=== PATIENT | male | born 1995 | race Caucasian/White ===

== ENCOUNTER 2023-03-23 02:08 | Day surgery (SDC) | payer MEDICARE, MEDICAID, SELFPAY ==
[2023-03-08 16:08] VITALS: BMI 25.5
--- NOTE | 2023-03-08 16:30 | PC.NURSE ---
Report to the Outpatient Waiting Room, entrance under the green pavilion located off [facility], at time _0600_ on date _[id number]_. Planned Procedure Time: _0730_. Time changes happen often and if your time is changed the preop area will call you the afternoon before. - You and your visitor will be asked to self-screen and do not enter if you have any COVID symptoms. - A mask is optional within the hospital at this time. Patients may have clear liquids (water, carbonated beverages, clear teas, apple juice) until 3 hours prior to surgery with a maximum of 20 ounces. - No food from midnight until time of surgery - Children will be allowed to drink immediately following surgery. If applicable, please bring a bottle or sippy cup to assist with drinking. Juice, water, soda, and popsicles are readily available. Take the following medications with a SIP of water the morning of surgery: _Carbamazepine, Clonazepam, Desmopressin, Hydroxyzine, Lacosamide, Levothyroxine, Quetiapine._ DO NOT STOP ANY OF YOUR OTHER PRESCRIPTION MEDICATIONS PRIOR TO SURGERY ?EXCEPT THE FOLLOWING Medications to discontinue per physician None Please no make-up, nail divehi, hairspray, perfume, deodorant, or body powder the day of surgery. No jewelry (including any body piercings) or valuables the day of surgery, leave them at home. Please take a shower or bath the night before, or the morning of, surgery with an antibacterial soap. Wear comfortable, loose fitting clothing. Children are encouraged to wear pajamas. - Jewelry must be removed prior to entering the operating room. Rings and piercings that are not removed may be cut off. - The hospital will not accept responsibility for valuables. - Please leave all valuables, including medications, at home the day of surgery. If you are going home after surgery, a licensed route relief driver must drive you home. - NO public transportation without another adult if you receive anesthesia. - We recommend that an adult stay with you for 24 hours following discharge. - We also recommend that you do not drive, make important decision, drink alcoholic beverages, or take any drugs that were not prescribed by your health care provider for at least 24 hours after your discharge time. Follow any additional instructions given to you from your surgeon. If you or anyone in your household have experienced Covid symptoms in the past week, please notify your surgeon or the nurse liaison at the phone number below for possible testing. Telephone instructions given to __Roya at [facility]___and asked if any additional questions and then verbalized understanding. Patient advised to call surgeon office or pre surgery nurse liaison [phone] if any additional questions.
--- NOTE | 2023-03-22 12:56 | WPDANESEPPF ---
Anes - Initial Pre Proc Eval Procedure: Operation Date: 03/23/23 07:30 Proposed Procedures p Examination and Xray under Anesthesia, Extract Teeth as Necessary - Lenard Vasquez DMD Date/Time: 03/22/23 12:56 Surgeon: Lenard Vasquez DMD Pre Op Diagnosis: dental caries Patient Data Age: 27 Gender: M Height: 1.63 m Weight: 67.6 kg Allergies Allergy/AdvReac Type Severity Reaction Status Date / Time risperidone Allergy Unknown Unknown Verified 03/08/23 15:15 diazepam AdvReac Severe Agitated Verified 03/08/23 15:15 haloperidol [From Haldol] AdvReac Severe Other Verified 03/08/23 15:15 valproic acid AdvReac Other Verified 03/08/23 15:17 Home Medications Medication Instructions Recorded Confirmed Type acetaminophen 500 mg tablet 500 mg PO Q6H PRN Pain 03/08/23 03/08/23 History (Tylenol Extra Strength) benzocaine 20 % mucosal gel 1 applic mucous membrane BID PRN 03/08/23 03/08/23 History Pain carbamazepine 100 mg chewable 300 mg PO BID 03/08/23 03/08/23 History tablet carbamide peroxide 6.5 % ear drops 2 drp EACH EAR Q12H 03/08/23 03/08/23 History (Debrox) carboxymethylcellulose sodium 1 % 1 drp LEFT EYE Q6H 03/08/23 03/08/23 History eye drops (Artificial Tears (carboxymethylcellulose)) clonazepam 0.5 mg tablet 0.5 mg PO DAILY 03/08/23 03/08/23 History desmopressin 0.1 mg tablet 0.3 mg PO BID 03/08/23 03/08/23 History diphenhydramine HCl 25 mg tablet 25 mg PO Q6H PRN hives 03/08/23 03/08/23 History (Benadryl Allergy) famotidine 20 mg tablet 20 mg PO DAILY 03/08/23 03/08/23 History gemfibrozil 600 mg tablet 600 mg PO BID 03/08/23 03/08/23 History hydrochlorothiazide 12.5 mg capsule 12.5 mg PO DAILY 03/08/23 03/08/23 History hydroxyzine HCl 25 mg tablet 25 mg PO TID 03/08/23 03/08/23 History lacosamide 200 mg tablet 200 mg PO BID 03/08/23 03/08/23 History levothyroxine 50 mcg tablet 50 mcg PO DAILY 03/08/23 03/08/23 History loperamide 2 mg tablet 2 mg PO QID PRN Diarrhea 03/08/23 03/08/23 History loratadine 10 mg tablet 5 mg PO BID 03/08/23 03/08/23 History magnesium oxide 400 mg PO DAILY 03/08/23 03/08/23 History metformin 500 mg tablet 500 mg PO BID 03/08/23 03/08/23 History ondansetron 4 mg disintegrating 4 mg PO Q6H PRN Nausea And Vomiting 03/08/23 03/08/23 History tablet quetiapine 100 mg tablet 100 mg PO TID 03/08/23 03/08/23 History Patient hx anesthesia problems: none Family hx anesthesia problems: none Results Review: All pre-operative results and documents have been reviewed as part of the pre-operative evaluation. [facility] Past Medical History Medical History (Updated 03/23/23 @ 07:19 by Lenard Vasquez, [facility]) Bipolar disorder Congenital malformation aortic and mitral valves Diabetes type 2, controlled GERD (gastroesophageal reflux disease) Hyperlipidemia Hypertension Hypothyroidism Legal blindness Seizure TBI (traumatic brain injury) Social History Social History Smoking status: Never smoker Alcohol intake: never Living arrangements: senior care Anes - Eval Final PreProcedure Day of Procedure 03/22/23 12:56 Patient weight: overweight Heart: regular rate and rhythm Lungs: clear to auscultation Airway: Mallampati scale class II Neurological: alert and oriented Last oral intake: >/= 8 hours ASA classification: IV Emergent: no Anesthetic plan: proceed Anesthesia type and monitoring: general ETT and standard monitoring Results Review: All pre-operative results and documents have been reviewed as part of the pre-operative evaluation. Informed Consent: The patient's anesthetic plan and its attendant risks and benefits were discussed with the patient/family/POA. Questions were solicited and answers provided to the satisfaction of the patient/family/POA.
[2023-03-23] VITALS (7 sets, daily range): BP systolic 112–130; BP diastolic 60–84; PULSE 85–92; RESP 12–18; TEMP 36.2–36.3; O2SAT 92–100
--- NOTE | ~2023-03-23 | XR_ITS ---
EXAMINATION: XR teeth 1V DATE: 03/23/2023 08:52 INDICATION: Teeth extraction TECHNIQUE: Frontal radiographs of the teeth were obtained during procedure performed by Dr. Vasquez. Ra diologist was not present for the imaging or procedure. COMPARISON: None. FINDINGS/IMPRESSION: There are numerous dental caries. See procedure note for further detail. Reviewed, dictated and finalized at location A.
--- NOTE | 2023-03-23 07:18 | WPDHPUPDATE1 ---
History and Physical Update Update Date/Time: 03/23/23 07:18 History and Physical has been reviewed, including an updated exam of the patient. There are NO changes in the patient's condition. Risks, benefits, and alternatives have been discussed and questions answered. Patient agrees to proceed with procedure.
--- NOTE | 2023-03-23 07:18 | PM.IMHP ---
H&P: HPI History of Present Illness Date/Time: 03/23/23 07:18 Chief Complaint: bad teeth PMFSH Past Medical History Medical History (Updated 03/23/23 @ 07:19 by Lenard Vasquez DMD) Bipolar disorder Congenital malformation aortic and mitral valves Diabetes type 2, controlled GERD (gastroesophageal reflux disease) Hyperlipidemia Hypertension Hypothyroidism Legal blindness Seizure TBI (traumatic brain injury) Social History Social History Smoking status: Never smoker Alcohol intake: never Living arrangements: care home Meds Home Medications and Allergies Home Medications Medication Instructions Recorded Confirmed Type acetaminophen 500 mg tablet 500 mg PO Q6H PRN Pain 03/08/23 03/08/23 History (Tylenol Extra Strength) benzocaine 20 % mucosal gel 1 applic mucous membrane BID PRN 03/08/23 03/08/23 History Pain carbamazepine 100 mg chewable 300 mg PO BID 03/08/23 03/08/23 History tablet carbamide peroxide 6.5 % ear drops 2 drp EACH EAR Q12H 03/08/23 03/08/23 History (Debrox) carboxymethylcellulose sodium 1 % 1 drp LEFT EYE Q6H 03/08/23 03/08/23 History eye drops (Artificial Tears (carboxymethylcellulose)) clonazepam 0.5 mg tablet 0.5 mg PO DAILY 03/08/23 03/08/23 History desmopressin 0.1 mg tablet 0.3 mg PO BID 03/08/23 03/08/23 History diphenhydramine HCl 25 mg tablet 25 mg PO Q6H PRN hives 03/08/23 03/08/23 History (Benadryl Allergy) famotidine 20 mg tablet 20 mg PO DAILY 03/08/23 03/08/23 History gemfibrozil 600 mg tablet 600 mg PO BID 03/08/23 03/08/23 History hydrochlorothiazide 12.5 mg capsule 12.5 mg PO DAILY 03/08/23 03/08/23 History hydroxyzine HCl 25 mg tablet 25 mg PO TID 03/08/23 03/08/23 History lacosamide 200 mg tablet 200 mg PO BID 03/08/23 03/08/23 History levothyroxine 50 mcg tablet 50 mcg PO DAILY 03/08/23 03/08/23 History loperamide 2 mg tablet 2 mg PO QID PRN Diarrhea 03/08/23 03/08/23 History loratadine 10 mg tablet 5 mg PO BID 03/08/23 03/08/23 History magnesium oxide 400 mg PO DAILY 03/08/23 03/08/23 History metformin 500 mg tablet 500 mg PO BID 03/08/23 03/08/23 History ondansetron 4 mg disintegrating 4 mg PO Q6H PRN Nausea And Vomiting 03/08/23 03/08/23 History tablet quetiapine 100 mg tablet 100 mg PO TID 03/08/23 03/08/23 History Allergies Allergy/AdvReac Type Severity Reaction Status Date / Time risperidone Allergy Unknown Unknown Verified 03/08/23 15:15 diazepam AdvReac Severe Agitated Verified 03/08/23 15:15 haloperidol [From Haldol] AdvReac Severe Other Verified 03/08/23 15:15 valproic acid AdvReac Other Verified 03/08/23 15:17 Assessment and Plan Assessment and plan (1) Non-restorable tooth: Code(s): K08.89 - Other specified disorders of teeth and supporting structures Status: Acute Assessment and Plan: exam under anesthesia and extractions as necessary Plan exam under anesthesia and extractions as necessary
[2023-03-23 07:48] LABS: Glucose Point of Care 162 mg/dl (65-105)
[2023-03-23] MEDS: OXYMETAZOLINE HCL 0.05% NAS 15 ML BTL (*BKC) 1 SPRAY NASAL (08:15)
[2023-03-23] MEDS: LIDOCAINE 2%-EPI (FOR DENTAL BLOCK) 1.7 ML CARTRIDGE 8.5 ML INFILTRATE (08:16)
[2023-03-23] MEDS: LACTATED RINGERS 1,000 ML 30 ML IV CONT (08:28)
[2023-03-23] MEDS: KETOROLAC 15 MG/ML VIAL (*BKC) IV PUSH (09:15)
--- NOTE | 2023-03-23 09:24 | P.OP_ITS ---
Procedure Note - Detailed Date of Procedure 03/23/23 Pre-op Diagnosis dental caries Post-op Diagnosis Same Procedure Performed exam under anesthesia and full mouth tooth extractions (# 4-6, 8, 8s, 11-13, 20- 28, 28s, 29) Surgeon Lenard Vasquez, [facility] Anesthesia General Description of Procedure Patient encounter in the operating room under the care of the Anesthesia Service who induced general anesthetic radiographs were taken. A limited oral dental evaluation was completed and the decision was made to remove all of the teeth due to caries and excessive wear on the teeth and none strategic pattern teeth that could be saved. Oral cavity was suctioned free of debris and throat pack placed. Local anesthetic administered. Fifteen blade was used to make an incision on the buccal aspect of the maxillary teeth and a full-thickness flap solid to the buckle. Teeth numbers 4,5,6, and 8 were extracted using elevator forceps technique with minimal ostectomy. Tooth number 28 S was uncovered and removed using elevators and forceps. The available plasty was completed and wound thoroughly irrigated and then closed using 4-0 chromic gut suture in continuous fashion. Teeth numbers 11 12 and 13 were then extracted with minimal ostectomy available plasty completed the wound irrigated and closed using 4-0 chromic gut suture in continuous fashion. Attention was turned to the mandible were incision was made along the necks of the mandibular teeth and a buccal flap was created teeth numbers 20,21,22,23,24,25,26,27,28,28s and 29 were removed using a forceps technique with minimal ostectomy. Alveoloplasty was completed. Wound was thoroughly irrigated and then closed using 4-0 chromic gut suture in continuous fashion. The oral cavity was suctioned free of debris and throat pack was removed. Gauze packs placed. Care of the patient return to the anesthesia service Complications No immediate complications
[2023-03-23 10:16] LABS: Glucose Point of Care 179 mg/dl (65-105)
[2023-03-23] MEDS: ACETAMINOPHEN 650 MG SUPPOSITORY RECTAL (11:10)
== END 2023-03-23 11:18 | disposition home or self-care (01) ==
PROVIDERS: PCP Family Medicine; Visit Provider Dentist
PROC: (CPT 41899; principal; 2023-03-23 07:30)
DX: K02.9 Dental caries, unspecified (principal); K08.89 Other specified disorders of teeth and supporting structures; F31.9 Bipolar disorder, unspecified; E11.9 Type 2 diabetes mellitus without complications; K21.9 Gastro-esophageal reflux disease without esophagitis; E78.5 Hyperlipidemia, unspecified; I10 Essential (primary) hypertension; E03.9 Hypothyroidism, unspecified; G40.909 Epilepsy, unspecified, not intractable, without status epilepticus; Z87.820 Personal history of traumatic brain injury; Z79.84 Long term (current) use of oral hypoglycemic drugs
CPT/HCPCS: D7240 ×19; 70300; 82948; A9270; J1100; J1885; J2250; J2405; J3010; J7120